=== PATIENT | female | born 1985 | race Caucasian/White ===

== ENCOUNTER → 2017-09-17 | Outpatient (CLI) | payer OTHER | LOC: FIMAGING 12:14 | PROVIDERS: ATTEND Student in an Organized Health Care Education/Training Program | DX: O30.011 Twin pregnancy, monochorionic/monoamniotic, first trimester (principal); Z3A.11 11 weeks gestation of pregnancy ==

== ENCOUNTER → 2017-10-02 | Outpatient (CLI) | payer OTHER | LOC: FIMAGING 11:03 | PROVIDERS: ATTEND Student in an Organized Health Care Education/Training Program | DX: O30.012 Twin pregnancy, monochorionic/monoamniotic, second trimester (principal); Z3A.14 14 weeks gestation of pregnancy ==

== ENCOUNTER → 2017-10-15 | Outpatient (CLI) | payer OTHER | LOC: FIMAGING 12:27 | PROVIDERS: ATTEND Student in an Organized Health Care Education/Training Program | DX: O30.012 Twin pregnancy, monochorionic/monoamniotic, second trimester (principal); Z3A.15 15 weeks gestation of pregnancy ==

== ENCOUNTER → 2017-10-30 | Outpatient (CLI) | payer OTHER | LOC: FIMAGING 08:38 | PROVIDERS: ATTEND Student in an Organized Health Care Education/Training Program | DX: O30.012 Twin pregnancy, monochorionic/monoamniotic, second trimester (principal); Z3A.18 18 weeks gestation of pregnancy ==

== ENCOUNTER → 2017-11-12 | Outpatient (CLI) | payer OTHER | LOC: FIMAGING 09:29 | PROVIDERS: ATTEND Student in an Organized Health Care Education/Training Program | DX: O30.012 Twin pregnancy, monochorionic/monoamniotic, second trimester (principal); Z3A.19 19 weeks gestation of pregnancy ==

== ENCOUNTER → 2017-11-26 | Outpatient (CLI) | payer OTHER | LOC: FIMAGING 12:59 | PROVIDERS: ATTEND Student in an Organized Health Care Education/Training Program | DX: O43.022 Fetus-to-fetus placental transfusion syndrome, second trimester (principal); O35.8XX2 Maternal care for other (suspected) fetal abnormality and damage, fetus 2; O30.012 Twin pregnancy, monochorionic/monoamniotic, second trimester; Z3A.21 21 weeks gestation of pregnancy ==

== ENCOUNTER → 2017-12-10 | Outpatient (CLI) | payer OTHER | LOC: FIMAGING 09:28 | PROVIDERS: ATTEND Student in an Organized Health Care Education/Training Program | DX: O30.012 Twin pregnancy, monochorionic/monoamniotic, second trimester (principal); O36.5920 Maternal care for other known or suspected poor fetal growth, second trimester, not applicable or unspecified; Z3A.23 23 weeks gestation of pregnancy ==